=== PATIENT | male | born 1955 | race Caucasian/White ===

== ENCOUNTER 2016-12-18 15:35 | Emergency (ER) | payer OTHER ==
[~2016-12-18] VITALS: Ht 182.9 cm; Wt 100.0 kg
[~2016-12-18 15:35] MED LIST: AMOX-366 PO; CITA20TA11 PO; LISI-571 PO; METF-496 PO; SIMV40TA5 PO; SYN75 PO; WARF7.5T4 PO
[2016-12-18 15:37] VITALS: BP 155/83; PULSE 55; RESP 16; O2SAT 95
--- NOTE | 2016-12-18 15:59 | ED.REPORT ---
HPI-Dyspnea / Wheezing Date of Service Dec 18, 2016 ED Provider: Jaxson Warren DO Patient is a 61 year old male with a history of metastatic melanoma, hypertension, stroke, diabetes and mitral valve replacement who presents to the ED complaining of shortness of breath. Associated symptoms include "lung pain", low grade fever, non productive cough, night sweats and dyspnea with exertion. He denies chest pain. The patient reports that he went on a trip a week ago and his symptoms started worsening. He states that he thinks he over exerted himself and was seen [address] Whittington, where he was given Prednisone. When the patient called Dr. Whittington today, it was recommended that the patient come to the ED for a CT. The patient had similar symptoms 2 months and they thought it was due to radiation pneumonitis or a pneumonia. He was put on antibiotics and started to feel better. His last radiation treatment was in April 2016. Patient is currently on Warfarin. Nursing Notes Stated Complaint: POSSIBLE PNEUMONIA Chief Complaint: Respiratory Distress Nursing Notes Reviewed: Yes Allergies: Coded Allergies: No Known Allergies (Unverified , 12/18/16) Scheduled Amoxicillin/Clav K 875-125 mg (Augmentin 875-125 mg) 1 Each Tablet 1 TABLET PO BID Citalopram (Citalopram) 20 Mg Tablet 20 MG PO DAILY Furosemide (Furosemide) 20 Mg Tab 20 MG PO DAILY Levothyroxine (Synthroid) 75 Mcg Tablet 75 MCG PO DAILY Lisinopril (Lisinopril) 5 Mg Tablet 5 MG PO DAILY Metformin ER (Metformin ER) 1,000 Mg Tablet 1,000 MG PO BID Prednisone (PredniSONE) 20 Mg Tablet 20 MG PO DAILY 80mg daily for 7 days, then 40 mg daily Simvastatin (Simvastatin) 40 Mg Tablet 40 MG PO HS Warfarin Sodium (Warfarin Sodium) 7.5 Mg Tablet 7.5 MG PO DAILY Warfarin Sodium (Warfarin Sodium) 1 Mg Tablet 1 MG PO DAILY 7 mg daily beginning on 12/21/16 General Time Seen by MD: 15:59 Chief Complaint Shortness of breath Hx Obtained From: Patient Arrived By: Walk-in Sudden in Onset?: Yes Onset Occurred: 1 week ago Symptom Duration: Since onset Recent Healthcare: No recent hospitalization, Recent doctor visit Similar Sx Previous: Yes Past Medical History Past Medical History metastatic melanoma stroke Reports: Diabetes mellitus, Hypertension Reports: Atrial fibrillation Past Surgical History mitral valve replacement neck surgery Smoking History Never Smoker Social History Alcohol Use: Denies alcohol use Drug Use: Denies drug use Other Social History: Good social support Ambulatory Status Independent Review of Systems Review of Systems Note: night sweats Constitutional: Reports: Fatigue, Fever, Denies: Chills Respiratory: Reports: Dyspnea on exertion, Non-productive cough, Shortness of breath, Denies: Wheezing Cardiovascular: Denies: Chest pain Complete sys rev & neg: except as marked. Physical Exam Initial Vital Signs Vital Signs (First) Date Time Temp Pulse Resp B/P Pulse Ox O2 Delivery O2 Flow Rate FiO2 12/18/16 15:37 36.6 55 16 155/83 95 Room Air Initial VS: Reviewed General/Constitutional: Awake, Alert Neck: Atraumatic, Supple, Full range of motion Respiratory / Chest: Atraumatic, No respiratory distress rales throughout the right lung field Cardiovascular: Heart rate NL, Regular rhythm, Heart sounds NL Skin: Atraumatic, Color NL, No rash, Warm, Dry Neurologic: Oriented X3, Speech NL, No motor deficits, No sensory deficits Head / Eyes: Atraumatic, Normocephalic, PERRL, EOMI Psychiatric: Affect NL, Mood NL Interpretation & Diagnostics Lab Results Interpretation Result Diagram: 12/18/16 1620 12/18/16 1620 Test 12/18/16 16:20 12/18/16 16:30 12/18/16 18:12 White Blood Count 8.9th/mm3 (3.8-10.1) Red Blood Count 3.60mil/mm3 (4.40-5.80) Hemoglobin 10.0g/dL (13.8-17.2) Hematocrit 31.6% (41.0-50.0) Mean Corpuscular Volume 87.8fL (81-100) Mean Corpuscular Hemoglobin 27.8pg (27.0-35.0) Mean Corpuscular Hemoglobin Concent 31.6% (32.0-37.0) Red Cell Distribution Width 18.8% (12.3-15.4) Platelet Count 427bil/L (150-400) Neutrophils (%) (Auto) 90.3% (40-74) Lymphocytes (%) (Auto) 5.3% (14-46) Monocytes (%) (Auto) 4.0% (4-12) Eosinophils (%) (Auto) 0% (0-5) Basophils (%) (Auto) 0.1% (0-3) Sodium Level 138mEq/L (134-144) Potassium Level 4.6mEq/L (3.5-5.2) Chloride Level 101mEq/L (97-108) Carbon Dioxide Level 22mmol/L (18-29) Blood Urea Nitrogen 25mg/dL (8-27) Creatinine 0.82mg/dL (0.76-1.27) Estimat Glomerular Filtration Rate 101mL/min (>59) Glucose Level 299mg/dL (60-99) Lactic Acid Level 2.3mmol/L (0.4-2.0) Calcium Level 9.6mg/dL (8.5-10.1) Total Bilirubin 0.2mg/dL (0.0-1.2) Aspartate Amino Transf (AST/SGOT) 18U/L (0-50) Alanine Aminotransferase (ALT/SGPT) 20U/L (0-44) Alkaline Phosphatase 71U/L (25-160) Troponin T < 0.010ug/L (0.0-0.011) Pro-B-Type Natriuretic Peptide 4235pg/mL (0-210) Total Protein 6.4g/dL (6.4-8.4) Albumin 3.3g/dL (3.4-5.0) Procalcitonin 0.12ng/mL (0.00-0.08) Prothrombin Time 54.3sec (8.1-12.5) Prothromb Time International Ratio 4.91ratio ECG Interpretation ECG Interpretation: atrial flutter Time: 16:42 Interpreted by: ED physician Normal ECG Interpretation: Normal rate (69) CT Chest Interpretation IMPRESSION: 1. Tiny subsegmental left lower lobe pulmonary embolus. 2. New diffuse left lung pulmonary opacities are most consistent with infection. Pulmonary hemorrhage from a now nearly completely resolved left-sided pulmonary embolus is less likely. 3. New small pleural effusions right greater than left. 4. Mixed improvement and worsening of right lung pulmonary opacities. Dictated by: Boo Jean M.D. on 12/18/2016 at 17:44 Approved by: Boo Jean M.D. on 12/18/2016 at 17:53 Interpretation / Wet Read by: Interpret - Radiologist Re-Eval/Medical Decision Med Decision/Clinical Course Findings likely represent pneumonitis after chemotherapy. Discussed with his oncologist who agrees with this. Patient does not wish to be admitted. Extensive discharge and follow-up planning is made. Return and follow-up precautions given. Re-Evaluation/Progress #1: Time of Eval: 17:58 Re-Evaluation/Progress Note: Discussed CT results. Recommended admission but the patient would like to wait until we consult with Dr. Whittington because he would prefer not to be admitted. Re-Evaluation/Progress #2: Time of Eval: 18:13 Re-Evaluation/Progress Note: Discussed plan for treatment and discharge after consult with Dr. Whittington. Patient understands and agrees to the plan. All questions were addressed Consultation : Referral / Consult Name: Amber Whittington MD Consulted With: Primary care physician (oncology) Call Returned at: 18:05 Note: Consult with Dr. Whittington who recommends increasing the Prednisone to 80mg for 7 days, then 40 mg daily for [address] Whittington thinks this is consistent with pneumonitis. Recommends stopping antibiotics and taking Furosemide 20mg daily. Fever is to be expected. Advises holding Coumadin for 3 days then resuming at 7mg daily. Follow up in 2 weeks Counseled Regarding: Diagnosis, Lab results, Need for follow-up, When/why to return to ED Discharge & Departure Impression: Primary Impression: Pneumonitis Additional Impression: Pulmonary embolism Pulmonary embolism type: other Chronicity: unspecified Acute cor pulmonale presence: without acute cor pulmonale Qualified Code: I26.99 - Other pulmonary embolism without acute cor pulmonale Disposition: Home Discharge Condition All VS Reviewed: Yes Condition: Stable Patient Instructions: Pneumonitis (ED) Additional Instructions: Your CT shows probable worsening pneumonitis. You also have a tiny pulmonary embolism. After discussion with your oncologist we will send you home. Increase your prednisone to 80 mg daily for 7 days then 40 mg daily until seen by your oncologist. Please take furosemide 20 mg daily. Your INR was elevated. Hold your Coumadin for 3 days, on the fourth day resume your Coumadin at 7 mg daily. Follow-up with your oncologist as planned in the next few weeks. Referrals: Amber Whittington MD Scribe Attestation Portions of this note were transcribed by Marquita Finch. I, Dr. Virginia Costa personally performed the history, physical exam and medical decision-making; I reviewed and confirmed the accuracy of the information in the transcribed note. Signed by: Manisha Wheeler, 12/18/16 and 1817 copies to: Amber Whittington MD, Timothy S DO Dec 18, 2016 15:59 Heather Finch Dec 18, 2016 16:15
[2016-12-18 16:00] VITALS: BP 138/74; PULSE 92; RESP 25; O2SAT 97
[2016-12-18] MEDS ORDERED: 0.9% Sodium Chloride 1,000 ML IV SCH (16:15)
[2016-12-18 16:30] VITALS: BP 132/74; PULSE 75; RESP 26; O2SAT 94
[2016-12-18 16:33] LABS: BASOPHILS % (AUTO) 0.1 % (0-3); EOSINOPHILS % (AUTO) 0 % (0-5); Mean Corpuscular Hemoglobin 27.8 pg (27.0-35.0); Mean Corpuscular Volume 87.8 fL (81-100); NEUTROPHILS % (AUTO) 90.3 % (40-74); Platelet Count 427 bil/L (150-400)
[2016-12-18 17:00] VITALS: BP 128/73; PULSE 74; RESP 29; O2SAT 94
[2016-12-18 17:00] LABS: INR 4.91 ratio
[2016-12-18 17:04] LABS: TROPONIN T < 0.010 ug/L (0.0-0.011)
[2016-12-18 17:30] VITALS: BP 136/84; PULSE 74; RESP 26; O2SAT 94
--- NOTE | 2016-12-18 17:55 | DRSVH ---
PROCEDURE: CT ANGIO CHEST PULMONARY EMBOLISM ([id number]) INDICATIONS: chest pain, h/o cancer TECHNIQUE: After the administration of intravenous contrast, 2 mm thick sections acquired from the pulmonary [place] to the posterior costophrenic angles. 3-dimensional maximum intensity projection (MIP) coronal a nd sagittal reformats were then acquired through the thorax. For radiation dose reduction, the follo wing was used: automated exposure control, adjustment of mA and/or kV according to patient size. COMPARISON: [facility], CT, CT CHEST WO CON, 11/14/2016, 12:16. FINDINGS: Image quality: Excellent. Pulmonary arteries: Tiny subsegmental pulmonary embolus in the left lower lobe on se 5 im 85. Lungs and pleura: New small right-sided pleural effusion. Right apical and pulmonary opacities have i mproved. Mixed improvement and worsening of right lower lobe pulmonary opacities. There are new inter stitial infiltrates throughout the left lung with a trace left-sided pleural effusion.. Mediastinum: Stable mediastinal and hilar lymphadenopathy. Normal heart size. No esophageal hiatal he rnia. Left-sided portacatheter with tip in the upper SVC. Mitral valve postoperative change. Sternot melvin. Aorta is insufficiently opacified for luminal evaluation. Bones and chest wall: No suspicious bony lesions. Ribs and thoracic spine appear intact throughout. Thyroid gland is poorly seen. No axillary or supraclavicular adenopathy. Abdomen: Reflux of contrast into the inferior vena cava consistent with increased right heart pressu res. Otherwise partially visualized organs of the upper abdomen are within normal limits. IMPRESSION: 1. Tiny subsegmental left lower lobe pulmonary embolus. 2. New diffuse left lung pulmonary opacities are most consistent with infection. Pulmonary hemorrhage from a now nearly completely resolved left-sided pulmonary embolus is less likely. 3. New small pleural effusions right greater than left. 4. Mixed improvement and worsening of right lung pulmonary opacities. Dictated by: Boo Jean M.D. on 12/18/2016 at 17:44 Approved by: Boo Jean M.D. on 12/18/2016 at 17:53
[2016-12-18] MEDS ORDERED: FUR20 PO (18:25)
[2016-12-18] MEDS ORDERED: WARF1TAB6 PO (18:25)
[2016-12-18] MEDS ORDERED: PRE20 PO (18:25)
[2016-12-18 18:38] VITALS: BP 150/97; PULSE 75; RESP 24; O2SAT 98
== END 2016-12-18 18:39 | disposition home or self-care (01) ==
LOC: SED 15:35
DX: J70.0 Acute pulmonary manifestations due to radiation (principal); I26.99 Other pulmonary embolism without acute cor pulmonale; I11.9 Hypertensive heart disease without heart failure; E11.52 Type 2 diabetes mellitus with diabetic peripheral angiopathy with gangrene; I48.91 Unspecified atrial fibrillation; C79.9 Secondary malignant neoplasm of unspecified site; C80.1 Malignant (primary) neoplasm, unspecified; Z86.73 Personal history of transient ischemic attack (TIA), and cerebral infarction without residual deficits; Z95.4 Presence of other heart-valve replacement; Z79.84 Long term (current) use of oral hypoglycemic drugs; Z79.01 Long term (current) use of anticoagulants
CPT/HCPCS: 36415; 71275; 80053; 83605; 83880; 84145; 84484; 85025; 85610; 87040; 93005; 96360; 96361; 99285; J7030; Q9967